=== PATIENT | male | born 1985 | race African-American/Black ===

== ENCOUNTER 2020-07-08 03:17 | Emergency (ER) | payer MEDICAID ==
[2020-07-08] MEDS ORDERED: KETOROLAC 60 MG/2 ML VIAL IM STA (03:54)
--- NOTE | 2020-07-08 03:54 | ED Physician Documentation ---
PD HPI ABD PAIN - Stated complaint Stated Complaint: ABD PX - History obtained from History obtained from: Patient - History of Present Illness Timing - onset: Enter time (23:30), Last night Timing - details: Abrupt onset, Waxing and waning Pain level now: 5 Quality: Pain Location: RUQ Radiation: Right flank Improved by: Other (no ameliorating factors) Worsened by: Palpation Associated symptoms: Nausea (resolved), Vomiting (one episode, resolved APPRENTICE ARCHITECT). No: Fever, Diarrhea, Constipation Similar symptoms before: Diagnosis (similar to previous biliary colic although it has been years since last episode) Recently seen: Not recently seen Review of Systems Constitutional: denies: Fever, Chills, Sweats Cardiac: reports: Reviewed and negative Respiratory: reports: Reviewed and negative GI: reports: Abdominal Pain, Nausea (resolved APPRENTICE ARCHITECT), Vomiting (resolved APPRENTICE ARCHITECT). de nies: Abdominal Swelling, Constipation, Diarrhea : denies: Dysuria, Frequency Skin: denies: Rash PD PAST MEDICAL HISTORY - Past Medical History Past Medical History: Yes Respiratory: Other GI: Cholelithiasis Other Past Medical History: bronchitis - Past Surgical History Past Surgical History: No - Present Medications Home Medications: Ambulatory Orders Medication Instructions Recorded Confirmed Ondansetron Odt [Zofran] 4 mg TL Q6H PRN #10 tablet 07/08/20 Oxycodone HCl/Acetaminophen 1 - 2 each PO Q6H PRN #14 tablet 07/08/20 [Percocet 5-325 mg Tablet] - Allergies Allergies/Adverse Reactions: Allergies Allergy/AdvReac Type Severity Reaction Status Date / Time No Known Drug Allergies Allergy Verified 07/08/20 03:51 - Social History Does the pt smoke?: Yes Smoking Status: Current every day smoker Does the pt drink ETOH?: Yes Does the pt have substance abuse?: No - Immunizations Immunizations are current?: No Immunizations: TDAP >10years/unknown - POLST Patient has POLST: No PD ED PE NORMAL - Vitals Vital signs reviewed: Yes - General General: Alert and oriented X 3, No acute distress, Well developed/nourished - Cardiac Cardiac: RRR, No murmur - Respiratory Respiratory: No respiratory distress, Clear bilaterally - Abdomen Abdomen: Soft, Non distended, Other (mild/moderate RUQ TTP) - Back Back: No CVA TTP Results - Vitals Vitals: Vital Signs - 24 hr 07/08/20 07/08/20 07/08/20 03:35 03:37 05:37 Temperature 36.4 C L 36.4 C L 37.1 C Heart Rate 50 L 50 L 62 Respiratory 16 16 16 Rate Blood Pressure 159/90 H 159/90 H 129/53 L O2 Saturation 100 100 100 07/08/20 06:33 Temperature 37.1 C Heart Rate 63 Respiratory 16 Rate Blood Pressure 128/60 O2 Saturation 100 Oxygen O2 Source Room air - Labs Labs: Laboratory Tests 07/08/20 07/08/20 07/08/20 03:50 04:00 04:00 WBC 8.6 RBC 4.28 L Hgb 13.6 L Hct 41.7 L MCV 97.4 H MCH 31.8 H MCHC 32.6 RDW 13.2 Plt Count 208 MPV 10.4 Neut # (Auto) 5.2 Lymph # (Auto) 2.7 Turner # (Auto) 0.4 Eos # (Auto) 0.3 Baso # (Auto) 0.1 Absolute Nucleated RBC 0.00 Nucleated RBC % 0.0 Sodium 141 Potassium 4.0 Chloride 105 Carbon Dioxide 29 Anion Gap 7.0 BUN 11 Creatinine 1.1 Estimated GFR (MDRD) 93 Glucose 116 H Calcium 9.9 Total Bilirubin 0.7 AST 41 ALT 33 Alkaline Phosphatase 42 Total Protein 7.4 Albumin 4.3 Globulin 3.1 Albumin/Globulin Ratio 1.4 Lipase 22 Urine Color YELLOW Urine Clarity CLEAR Urine pH 6.0 Ur Specific Gurley >=1.030 H Urine Protein NEGATIVE Urine Glucose (UA) NEGATIVE Urine Ketones NEGATIVE Urine Occult Blood NEGATIVE Urine Nitrite NEGATIVE Urine Bilirubin NEGATIVE Urine Urobilinogen 0.2 (NORMAL) Ur Leukocyte Esterase NEGATIVE Ur Microscopic Review NOT INDICATED Urine Culture Comments NOT INDICATED - Rads (name of study) RUQ US Radiology: Prelim report reviewed, See rad report PD MEDICAL DECISION MAKING - ED course Complexity details: reviewed results, re-evaluated patient, considered differential, d/w patient ED course: on reevaluation, patient is resting comfortably in NAD, reports good symptom relief after IM toradol. His blood tests are unremarkable, including normal WBC, normal LFTs. He has gallstones on US including one immobile stone, possibly impacted in gallbladder neck. Given his symptom relief with one dose of toradol and normal blood tests, discharge is appropriate at this time, instructed to follow up with general surgery, return if worse (pain refractory to prescribed percocet, or develops concerning signs/symptoms such as fever, hematemesis) Departure - Departure Disposition: 01 Home, Self Care Clinical Impression: Biliary colic Condition: Good Instructions: ED Gallstone W Biliary Colic Follow-Up: Pilo Goddard MD [Provider Admit Priv/Credential] - Prescriptions: Oxycodone HCl/Acetaminophen [Percocet 5-325 mg Tablet] 1 - 2 each PO Q6H PRN #14 tablet PRN Reason: pain Ondansetron Odt [Zofran] 4 mg TL Q6H PRN #10 tablet PRN Reason: Nausea / Vomiting Discharge Date/Time: 07/08/20 06:33
[2020-07-08 03:59] LABS: BILIRUBIN,URINE NEGATIVE (NEGATIVE); CLARITY,URINE CLEAR (CLEAR); GLUCOSE, URINE (UA) NEGATIVE (NEGATIVE); KETONES,URINE (UA) NEGATIVE (NEGATIVE); LEUKOCYTE ESTERASE, URINE NEGATIVE (NEGATIVE); NITRITE,URINE NEGATIVE (NEGATIVE); OCCULT BLOOD,URINE NEGATIVE (NEGATIVE); PROTEIN,URINE NEGATIVE (NEGATIVE); UROBILINOGEN,URINE 0.2 (NORMAL) E.U./dL (NORMAL)
[2020-07-08 04:08] LABS: BASOPHILS # (AUTO) 0.1 10^3/uL (0.0-0.1); BASOPHILS % (AUTO) 0.7 %; EOSINOPHILS # (AUTO) 0.3 10^3/uL (0.0-0.7); EOSINOPHILS % (AUTO) 3.3 %; HCT - HEMATOCRIT 41.7 % (42.0-52.0); HGB - HEMOGLOBIN 13.6 g/dL (14.0-18.0); LYMPHOCYTES # (AUTO) 2.7 10^3/uL (1.5-3.5); LYMPHOCYTES % (AUTO) 30.8 %; MEAN CORPUSCULAR HEMOGLOBIN 31.8 pg (27.0-31.0); MEAN CORPUSCULAR HGB CONC 32.6 g/dL (32.0-36.0); MEAN CORPUSCULAR VOLUME 97.4 fL (80.0-94.0); MEAN PLATELET VOLUME 10.4 fL (7.4-11.4); MONOCYTES # (AUTO) 0.4 10^3/uL (0.0-1.0); MONOCYTES % (AUTO) 4.8 %; NEUTROPHILS # (AUTO) 5.2 10^3/uL (1.5-6.6); NEUTROPHILS % (AUTO) 60.2 %; PLT - PLATELET COUNT 208 10^3/uL (130-450); RED BLOOD COUNT 4.28 10^6/uL (4.70-6.10); RED CELL DISTRIBUTION WIDTH 13.2 % (12.0-15.0); WHITE BLOOD COUNT 8.6 x10^3/uL (4.8-10.8)
[2020-07-08 04:21] LABS: ALBUMIN 4.3 g/dL (3.2-5.5); ALBUMIN/GLOBULIN RATIO 1.4 (1.0-2.2); BILIRUBIN,TOTAL 0.7 mg/dL (0.2-1.0); CALCIUM 9.9 mg/dL (8.5-10.3); CREATININE 1.1 mg/dL (0.6-1.2); TOTAL PROTEIN 7.4 g/dL (6.7-8.2)
[2020-07-08 06:34] VITALS: BP 128/60
--- NOTE | 2020-07-08 07:18 | Ultrasound Report ---
PROCEDURE: Abdomen Limited INDICATIONS: abd. pain TECHNIQUE: Real-time scanning was performed of the abdominal and retroperitoneal organs, with image documentatio n. COMPARISON: None. FINDINGS: Liver: Liver is normal in size and homogeneous in echotexture. Gallbladder: Gallbladder demonstrates normal wall thickness. No pericholecystic fluid. Negative sonog raphic Dolan's sign reported by the technologist. There are 2 shadowing gallstones, one of which rainer ears impacted within the gallbladder neck as there is no dependent movement. Biliary ducts: Intrahepatic bile ducts are non-dilated. Extrahepatic bile duct caliber measures 4 m m. Normal is 6-7 mm or less in diameter, or 10 mm or less post-cholecystectomy. Pancreas: Visualized portions of the proximal pancreas are sonographically normal. Right Kidney: The right kidney measures 10.8 cm in length. Renal cortical thickness and echogenicity is within normal limits. No hydronephrosis or suspicious calcifications. No solid masses. Miscellaneous: No free abdominal fluid. IMPRESSION: Cholelithiasis without current sonographic findings of cholecystitis. There is however suggestion of impaction of a stone within the gallbladder neck given no dependent movement. Agree with preliminary report. Reviewed by: John Poole DO on 07/08/2020 6:17 AM MONA Approved by: John Poole DO on 07/08/2020 6:17 AM MONA Station ID: [id number]
== END 2020-07-08 06:33 | disposition home or self-care (01) ==
LOC: ED 03:17
DX: K80.50 Calculus of bile duct without cholangitis or cholecystitis without obstruction (principal); F17.200 Nicotine dependence, unspecified, uncomplicated
CPT/HCPCS: 36415; 80053; 81001; 81003; 83690; 85025; 87086; 96372; 99284